=== PATIENT | male | born 1955 | race Caucasian/White ===

== ENCOUNTER 2020-06-09 19:36 | Emergency (ER) | payer MEDICARE ==
[2020-06-09] MEDS ORDERED: Oxymetazoline HCl 0.05% (30 ML BOT) ONE (19:43)
[2020-06-09] MEDS ORDERED: Tranexamic Acid 1,000 MG/10 ML VIAL ONE (19:56)
[2020-06-09] MEDS ORDERED: Sodium Chloride 0.9% 100 ML ONE (20:17)
[2020-06-09] MEDS ORDERED: CEFAZOLIN 1 GM VIAL ONE (20:17)
[2020-06-09 20:21] LABS: #Basophils 0.1 thou/uL (0.0-0.2); #Eosinphils 0.2 thou/uL (0.0-0.7); #Lymphocytes 2.1 thou/uL (1.20-3.40); #Monocytes 0.7 thou/uL (0.11-0.59); #Neutrophils 4.1 thou/uL (1.40-6.50); %Basophils 1.6 % (0.0-1.0); %Eosinophils 2.7 % (0.0-10.0); %Lymphocytes 29.6 % (21.0-51.0); %Monocytes 9.1 % (0.0-10.0); Hemoglobin 14.7 g/dL (14.0-18.0); Mean Corpuscular HGB CONC 34.1 g/dL (32.0-36.0); Mean Corpuscular Hemoglobin 30.7 pg (27.0-31.0); Mean Corpuscular Volume 90.2 fL (78.0-98.0); Mean Platelet Volume 7.1 fL (7.4-10.4); Platelet Count 213 thou/uL (130-400); RBC Distribution Width 11.1 % (11.5-14.5); White Blood Cell (WBC) Count 7.2 thou/uL (4.8-10.8)
[2020-06-09 21:00] LABS: Prothrombin Time 13.6 sec (12.0-14.7)
[2020-06-09 21:01] LABS: PTT 34.9 sec (22.9-36.1)
== END 2020-06-09 21:50 | disposition home or self-care (01) ==
LOC: NAV ERS 19:36
DX: R04.0 Epistaxis (principal); F17.210 Nicotine dependence, cigarettes, uncomplicated
CPT/HCPCS: 30903; 85025; 85610; 85730; 96365; J0690; J3490